=== PATIENT | male | born 1980 | race Hispanic/Latino ===

== ENCOUNTER 2017-05-19 13:54 | Emergency (ER) | payer SELFPAY ==
--- NOTE | 2017-05-19 15:01 | RAD ---
CHEST 1 VIEW: DATE: 05/19/17. TIME: 3:31 p.m. HISTORY: Chest pain. FINDINGS: Comparison is made with the exam of 07/15/14. The heart size is normal. The lungs are expanded without focal areas of consolidation, pneumothorax, or pleural effusions. No acute osseous abnormalities are seen. IMPRESSION: No radiographic evidence of acute cardiopulmonary process. POS: [facility]
--- NOTE | 2017-06-11 15:14 | EKG ---
Test Reason : Blood Pressure : / mmHG Vent. Rate : 066 BPM Atrial Rate : 066 BPM P-R Int : 156 ms QRS Dur : 098 ms QT Int : 368 ms P-R-T Axes : 033 -21 -06 degrees QTc Int : 385 ms Normal sinus rhythm Normal ECG Confirmed by TRIXIE ABREU, JOSH ([id number]), editor book JOSE CHIANG ([id number]) on 06/11/2017 3:14:16 PM Referred By: Confirmed By:JOSH MARCUM MD
== END 2017-05-19 15:59 | disposition home or self-care (01) ==
LOC: ERS 13:54
DX: R09.1 Pleurisy (principal); F17.210 Nicotine dependence, cigarettes, uncomplicated
CPT/HCPCS: 71045; 93005